=== PATIENT | female | born 1990 | race Caucasian/White ===

== ENCOUNTER 2020-11-16 15:31 | Outpatient (CLI) | payer OTHER ==
[~2020-11-16] VITALS: Ht 170.2 cm; Wt 93.2 kg
[~2020-11-16 15:31] MED LIST: IBUP-1223 PO; PREN1TAB27 PO
[2020-11-16 16:09] VITALS: BP 124/70
== END 2020-11-16 17:00 | disposition home or self-care (01) ==
LOC: LDOP 15:31
PROVIDERS: ATTEND Obstetrics & Gynecology Maternal & Fetal Medicine
DX: O42.92 Full-term premature rupture of membranes, unspecified as to length of time between rupture and onset of labor (principal); Z3A.37 37 weeks gestation of pregnancy
CPT/HCPCS: 59025; 84112

== ENCOUNTER 2020-11-24 11:36 | Outpatient (CLI) | payer OTHER ==
[~2020-11-24] VITALS: Ht 170.2 cm; Wt 101.3 kg
[2020-11-24 11:42] VITALS: BP 116/71
== END 2020-11-24 12:28 | disposition home or self-care (01) ==
LOC: LDOP 11:36
PROVIDERS: ATTEND Obstetrics & Gynecology Maternal & Fetal Medicine
DX: O36.8130 Decreased fetal movements, third trimester, not applicable or unspecified (principal); Z3A.38 38 weeks gestation of pregnancy
CPT/HCPCS: 59025

== ENCOUNTER 2020-11-29 13:57 | Inpatient (IN) | payer OTHER ==
[~2020-11-29] VITALS: Ht 170.2 cm; Wt 60.0 kg
[2020-12-01] MEDS ORDERED: OXYTOCIN 30U/ 0.9% NaCL 500ML 500 ML IV ONE (01:30)
[2020-12-01] MEDS ORDERED: FENTANYL PF 100 MCG/2ML IVPush PRN (01:30)
[2020-12-01] MEDS ORDERED: D5%-LACTATED RINGERS 1,000 ML IV SCH (01:30)
[2020-12-01] MEDS ORDERED: SODIUM CITRATE/CITRIC ACID 30 ML UDC PO PRN (01:30)
[2020-12-01] MEDS ORDERED: OXYTOCIN 30U/ 0.9% NaCL 500ML 500 ML IV PRN (01:30)
[2020-12-01] MEDS ORDERED: METOCLOPRAMIDE 5 MG/ML, 2ML IVPush PRN (01:30)
[2020-12-01] MEDS ORDERED: ONDANSETRON 2MG/ML, 2ML IVPush PRN ×3 (01:30→23:00)
[2020-12-01] MEDS ORDERED: TERBUTALINE 1 MG/ML, 1ML SQ PRN (01:30)
[2020-12-01] MEDS ORDERED: FENTANYL PF 100 MCG/2ML IV PRN (01:30)
[2020-12-01] MEDS ORDERED: TERBUTALINE 1 MG/ML, 1ML IVPush PRN (01:30)
[2020-12-01] MEDS ORDERED: LACTATED RINGERS 1,000 ML IV SCH ×2 (01:30→21:00)
[2020-12-01 01:41] LABS: BASOPHILS % (AUTO) 1 % (0-1); EOSINOPHILS % (AUTO) 1 % (1-7); LYMPHOCYTES % (AUTO) 21 % (22-44); MEAN CORPUSCULAR HEMOGLOBIN 28.7 pg (27.0-34.8); MEAN CORPUSCULAR HGB CONC 33.5 g/dL (32.4-35.8); MEAN PLATELET VOLUME 9.2 fL (7.4-10.4); MONOCYTES % (AUTO) 6 % (2-9); NEUTROPHILS % (AUTO) 72 % (42-75); PLATELET COUNT 212 x10^3/uL (130-400); RED CELL DISTRIBUTION WIDTH 13.4 % (9.6-15.2)
[2020-12-01] MEDS ORDERED: NEWBORN KIT ONE (02:34)
[2020-12-01] MEDS ORDERED: MISOPROSTOL 25 MCG TABLET ONE ×2 (03:30→07:39)
[2020-12-01] MEDS ORDERED: KETOROLAC 30 MG/1 ML IVPush SCH (05:55)
[2020-12-01] MEDS ORDERED: MISOPROSTOL 25 MCG TABLET VG PRN (08:00)
[2020-12-01] MEDS ORDERED: BUPIVACAINE 0.25% ONE (20:21)
[2020-12-01] MEDS ORDERED: FENTANYL/BUPIV./NS/PF 250 ML EPIDCONT ONE (20:21)
[2020-12-01] MEDS ORDERED: EPHEDRINE 50 MG/ML, 1ML ONE (20:51)
[2020-12-01] MEDS ORDERED: NALOXONE 0.4 MG/ML, 1ML IVPush PRN (21:00)
[2020-12-01] MEDS ORDERED: DIPHENHYDRAMINE 50 MG/ML, 1ML IVPush PRN (21:00)
[2020-12-01] MEDS ORDERED: LACTATED RINGERS 1,000 ML IVBOLUS PRN (21:00)
[2020-12-01] MEDS ORDERED: FENTANYL/BUPIV./NS/PF 250 ML EPIDCONT SCH (21:00)
[2020-12-01] MEDS ORDERED: EPHEDRINE 50 MG/ML, 1ML IVPush PRN ×2 (21:00→23:00)
[2020-12-01] MEDS ORDERED: NO SEDATIVES, TRANQUILIZERS OR ANTIEMETICS XX SCH (23:00)
[2020-12-01] MEDS ORDERED: NALOXONE 0.4 MG/ML, 1ML IV PRN (23:00)
[2020-12-01] MEDS ORDERED: OXYcodone/APAP 5/325MG TABLET PO PRN (23:00)
[2020-12-01] MEDS ORDERED: DIPHENHYDRAMINE 50 MG/ML, 1ML IV PRN (23:00)
[2020-12-01] MEDS ORDERED: LIDOCAINE/MPF 2%-EPI 1:200K, 20 ML ONE (23:05)
[2020-12-01] MEDS ORDERED: SODIUM CITRATE/CITRIC ACID 15 ML UDC ONE (23:06)
[2020-12-01] MEDS ORDERED: CEFAZOLIN 1,000 MG ONE (23:19)
[2020-12-01] MEDS ORDERED: OXYTOCIN 10 UNITS/ML, 1ML ONE ×2 (23:19→23:24)
[2020-12-01] MEDS ORDERED: ONDANSETRON 2MG/ML, 2ML ONE (23:19)
[2020-12-01] MEDS ORDERED: KETOROLAC 30 MG/1 ML ONE (23:19)
[2020-12-01] MEDS ORDERED: DEXAMETHASONE 4 MG/ML, 1ML ONE (23:19)
[2020-12-01] MEDS ORDERED: SODIUM CHLORIDE 0.9% PF 10ML ONE (23:19)
[2020-12-01] MEDS ORDERED: morphine SULFATE/PF 1 MG/ML, 10ML ONE (23:22)
[2020-12-02] MEDS ORDERED: MORPHINE SULFATE 4 MG/ML, 1ML IVPush PRN
[2020-12-02] MEDS ORDERED: MISOPROSTOL 200 MCG TABLET PR PRN
[2020-12-02] MEDS ORDERED: ACETAMINOPHEN 325 MG TABLET PO PRN
[2020-12-02] MEDS ORDERED: SIMETHICONE 80 MG CHEW TAB PO PRN
[2020-12-02] MEDS ORDERED: OXYcodone IR 5MG TABLET PO PRN
[2020-12-02] MEDS ORDERED: ONDANSETRON 2MG/ML, 2ML IV PRN
[2020-12-02] MEDS ORDERED: IBUPROFEN 600 MG TABLET PO PRN
[2020-12-02] MEDS ORDERED: DOCUSATE 100 MG CAPSULE PO PRN
[2020-12-02 02:00] VITALS: BP 98/61
[2020-12-02] MEDS ORDERED: OXYcodone/APAP 5/325MG TABLET PO PRN ×2 (02:30)
[2020-12-02] MEDS ORDERED: morphine SULFATE 10 MG/ML, 1ML IVPush PRN (03:30)
[2020-12-02 04:35] VITALS: BP 104/69
[2020-12-02] MEDS: KETOROLAC 30 MG/1 ML IV SCH ×4 (05:53→18:25)
[2020-12-02 07:10] VITALS: BP 105/67
[2020-12-02 07:34] LABS: BASOPHILS % (AUTO) 0 % (0-1); EOSINOPHILS % (AUTO) 0 % (1-7); LYMPHOCYTES % (AUTO) 6 % (22-44); MEAN CORPUSCULAR HEMOGLOBIN 29.1 pg (27.0-34.8); MONOCYTES % (AUTO) 5 % (2-9); NEUTROPHILS % (AUTO) 89 % (42-75); PLATELET COUNT 166 x10^3/uL (130-400); RED BLOOD COUNT 3.54 x10^6/uL (3.82-5.3); RED CELL DISTRIBUTION WIDTH 13.5 % (9.6-15.2)
[2020-12-02] MEDS: LACTATED RINGERS 1,000 ML IV SCH ×6 (08:00→20:00)
[2020-12-02] MEDS ORDERED: PROMETHAZINE 25 MG SUPP PR PRN (08:30)
[2020-12-02] MEDS: PRENATAL VIT/IRON/FA 1 EACH TABLET PO SCH (09:00)
[2020-12-02] MEDS: OXYTOCIN 30U/ 0.9% NaCL 500ML 500 ML IV SCH ×3 (10:00→20:00)
[2020-12-02 11:55] VITALS: BP 119/78
[2020-12-02 16:20] VITALS: BP 104/68
[2020-12-02 21:00] VITALS: BP 107/71
[2020-12-03] MEDS: KETOROLAC 30 MG/1 ML IV SCH ×2 (00:02→05:44)
[2020-12-03] MEDS: OXYcodone/APAP 5/325MG TABLET PO PRN ×2 (03:21→11:52)
[2020-12-03] MEDS: LACTATED RINGERS 1,000 ML IV SCH ×2 (06:00)
[2020-12-03] MEDS: OXYTOCIN 30U/ 0.9% NaCL 500ML 500 ML IV SCH (06:00)
[2020-12-03 07:35] VITALS: BP 102/66
[2020-12-03] MEDS: PRENATAL VIT/IRON/FA 1 EACH TABLET PO SCH (07:55)
== END 2020-12-03 14:14 | disposition home or self-care (01) | DRG 786 ==
LOC: LDIP 12-01 00:20 → 2NW 12-02 01:43
PROVIDERS: ADMIT Obstetrics & Gynecology Maternal & Fetal Medicine; ATTEND Obstetrics & Gynecology Maternal & Fetal Medicine
PROC: 10D00Z1 Extraction of Products of Conception, Low, Open Approach (ICD-10-PCS; principal; 2020-12-02)
DX: O76 Abnormality in fetal heart rate and rhythm complicating labor and delivery (principal); O45.93 Premature separation of placenta, unspecified, third trimester; O69.81X0 Labor and delivery complicated by cord around neck, without compression, not applicable or unspecified; Z20.822 Contact with and (suspected) exposure to COVID-19; Z37.0 Single live birth; Z3A.39 39 weeks gestation of pregnancy; Z30.2 Encounter for sterilization
CPT/HCPCS: 36415; 85025; 86592; 86850; 86900; 87635; 88305; G0378; J0690; J1100; J1885; J2274; J2405; J2590